=== PATIENT | male | born 1965 | race African-American/Black ===

== ENCOUNTER 2025-02-11 11:05 | Emergency (ER) | payer OTHER, SELFPAY ==
[2025-02-11 11:31] VITALS: BP 160/93; PULSE 74; RESP 18; TEMP 36.6; O2SAT 99
--- OUTSIDE RECORDS SUMMARY | 2025-02-11 12:15 | XMS_ITS | Clinical Summary ---
Author Organization [facility] Address [address] [place] [address] Care Team Providers Care Sheep Rancher Name Role Phone Raphael Sampson MD Unavailable [phone] Jorge GALLEGOS MD, Vasquez Lima Primary Care Provider Allergies No known active allergies Medications TADALAFIL 20 MG tabletIndication s:Erectile dysfunction, unspecified erectile dysfunction type Take 1 tablet (20 mg) by mouth daily as needed for erectile dysfunction. 30 tablet 2 2 Active methylPREDNISolo jagdish JERROD, (MEDROL) 4 MG tablet Take 1 tablet (4 mg total) by mouth daily. Follow package directions 1 each 3 Active lisinopril-hydro CHLOROthiazide (ZESTORETIC) 20-12.5 MG tablet Take 1 tablet by mouth daily. 30 tablet 3 Active Active Problems Problem Noted Date Diagnosed Date Mixed hyperlipidemia 09/11/2021 Primary hypertension 11/07/2018 Overweight (BMI 25.0-29.9) 11/07/2018 Resolved Problems Problem Noted Date Diagnosed Date Resolved Date Prostate cancer screening 09/11/2021 Chest pain 10/12/2018 01/29/2022 Family History Medical History Relation Comments Hypertension Brother Alcohol Abuse Father COPD Father Cancer Father Alcohol Abuse Mother Brain Aneurysm Mother Sickle Cell Trait Sister Relation Status Comments Brother Father Mother Sister Social History Tobacco Use Types Packs/Day Years Used Date Smoking Tobacco: Never Smokeless Tobacco: Never Tobacco Cessation:Counseling Given: No Alcohol Use Standard Drinks/Week Comments No 0 (1 standard drink = 0.6 oz pur e alcohol) PHQ-2 Answer Date Recorded PHQ-2 Score - If the patient scores above 3, please move on to questions 3-9 0 09/11/2021 Sex and Gender Information Value Date Recorded Sex Assigned at Not on file Legal Sex Male 5:43 PM CDT Gender Identity Not on file Sexual Orientation Not on file Last Filed Vital Signs Vital Sign Reading Time Taken Comments Blood Pressure 152/92 03/09/2023 1:41 PM CDT Pulse 68 03/09/2023 1:41 PM CDT Temperature 36.7 C (98 F) 03/09/2023 12:21 PM CDT Respiratory Rate 15 03/09/2023 1:41 PM CDT Oxygen Saturation 98% 03/09/2023 1:41 PM CDT Inhaled Oxygen Concentration - - Weight 100.6 kg (221 lb 12.5 oz) 2022 12:21 PM CDT Height 175.3 cm (5' 9) 03/09/2023 12:2 1 PM CDT Body Mass Index 32.75 03/09/2023 12:21 PM CDT Plan of Treatment Health Maintenance Due Date Last Done Comments Colorectal Cancer Screening Colonoscopy (10 Years) 1964 Annual Physical 12/29/1967 DTaP, Tdap and Td Vaccines ( 1 - Tdap) 12/29/1983 Pneumococcal Vaccine: 50+ Years (1 of 1 - PCV) 2014 Zoster Vaccines (1 of 2) 2014 COVID-19 Vaccine (3 - 2023-2 5 season) 2024 05/06/2021, 04/08/2021 RSV Immunization or 60+ Years (1 - 1-dose 75+ series) 12/29/2039 Hepatitis C 10/30/2051 Postponed from 1982 (Patient Refused) Meningococcal B Vaccine Aged Out No l onger eligible based on patient's age to complete this topic Meningococcal Vaccine Aged Out No violeta mohamud eligible based on patient's age to complete this topic RSV Immunizations Under 20 Months Aged Out No longer eligible b ased on patient's age to complete this topic Insurance [facility] Care Teams Sheep Rancher Relationship Specialty Start Date End Date Vasquez Patel II, MD [address] [place] [id number] PCP - General FAMILY PRACTICE 08/09/22 Raphael Sampson MD [facility]. [facility] [address] [place] [id number] Rabia Fine Grade Bulldozer Operator CARDIOVASCULAR DISEASE 08/31/19
--- OUTSIDE RECORDS SUMMARY | 2025-02-11 12:15 | XMS_ITS | Encounter Summary ---
Author Organization [facility] Address [address] [place] [address] Care Team Providers Care Consolidator Name Role Phone Raphael Sampson MD Unavailable [phone] Jorge GALLEGOS MD, Vasquez Lima Primary Care Provider Encounter Details Date Type Department Care Team (Late st Contact Info) Description 09/15/2022 [employer] Message Enc [facility] Family [facility] - [place] [address] [place] [address] [facility] Provider SCHEDULE APPOINMENT: ANNUAL PHYSICAL Social History Tobacco Use Types Packs/Day Years Used Date Smoking Tobacco: Never Smokeless Tobacco: Never Alcohol Use Standard Drinks/Week Comments No 0 [...] on file Sexual Orientation Not on file documented as of this encounter Functional Status * RETIRED Are you deaf or do you have serious difficulty hearing Answer Date of Assessment Author Status No 10/12/2018 11:31 AM CDT Acti ve * RETIRED Are you blind or do you have serious difficulty seeing, even when wearing glasses? Answer Date of Assessment Author Status No 10/12/2018 11:31 AM CDT Acti ve * Do you have serious difficulty walking or climbing stairs? Answer Date of Assessment Author Status No 10/12/2018 11:31 AM Humberto Gonzalez RN Active * Do you have difficulty dressing or bathing? Answer Date of Assessment Author Status No 10/12/2018 11:31 AM Humberto Gonzalez RN Active * Because of a physical, mental, or emotional condition, do you have difficulty doing errands alone such as visiting a doctor's office or shopping? Answer Date of Assessment Author Status No 10/12/2018 11:31 AM Humberto Gonzalez RN Active documented as of this encounter Mental Status * Because of a physical, mental, or emotional condition, do you have serious difficulty concentrating, remembering, or making decisions? 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 [address] [address] [place] Medical Assistant Prn CARDIOVASCULAR DISEASE 08/31/19 documented as of this encounter
--- NOTE | 2025-02-11 13:08 | ED_ITS ---
HPI - General Adult General Chief complaint: Back Pain/Injury Stated complaint: lower back pain radiates down RLE Time Seen by Provider: 02/11/25 11:57 History of Present Illness HPI narrative: 59-year-old male presents to the emergency department for evaluation for worsening lower back pain that radiates into his right leg. 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 Patient states the pain does radiate down to middle of the right thigh. Patient denies any change in bowel or bladder habits. Patient denies any numbness or tingling affecting the lower leg. Patient states he had no falls or specific injury. Pain did not bother him when he was crawling on the stage waited began to have more of a gradual onset over the preceding days. Patient reports he did take some ibuprofen for pain control last night but this did not help. Related Data Allergies Allergy/AdvReac Type Severity Reaction Status Date / Time No Known Allergies Allergy Verified 02/11/25 11:37 Review of Systems Review of Systems: All systems reviewed & are unremarkable except as noted in HPI and below Exam Narrative: APPEARANCE: Well appearing, no pain, no distress, well-nourished. HEAD: normocephalic, atraumatic. EYES: PERRLA/EOMI, conjunctivae clear. NOSE: Normal no drainage EARS:TMS clear with good light reflex. THROAT: Pharynx clear, no exudate. NECK: Supple. No adenopathy, no masses. RESPIRATORY: Airway patent, respirations nonlabored. Clear to auscultation bilaterally, no rales, rhonchi, wheezing. CARDIOVASCULAR: Regular rate and rhythm without murmurs rubs or gallops. ABDOMINAL: Soft, nontender, nondistended, normal bowel sounds MUSCULOSKELETAL: Right lower back tenderness to palpation with tenderness of the right buttock NEURO: Alert. Cranial nerves II through XII intact. Normal strength and reflexes of bilateral lower extremities SKIN: Warm, dry. Normal Color Course Vital Signs Vital signs: Vital Signs Temperature 97.9 F 02/11/25 11:31 Pulse Rate 74 02/11/25 11:31 Respiratory Rate 18 02/11/25 11:31 Blood Pressure 160/93 H 02/11/25 11:31 Pulse Oximetry 99 02/11/25 11:31 Oxygen Delivery Room Air 02/11/25 11:31 Temperature 97.9 F 02/11/25 11:31 Pulse Rate 74 02/11/25 11:31 Respiratory Rate 18 02/11/25 11:31 Blood Pressure 160/93 H 02/11/25 11:31 Pulse Oximetry 99 02/11/25 11:31 Oxygen Delivery Room Air 02/11/25 11:31 Medical Decision Making MDM Narrative Medical decision making narrative: 59-year-old male present to the emergency department for evaluation for lower back pain that is consistent with sciatica. Patient denies any specific falls or injuries. Low concern for skeletal injury. Patient was provided IM Toradol, p.o. New Enterprise and p.o. Flexeril emergency department. Patient family were updated on the physical exam and suspected diagnosis. Patient will be treated with Medrol Dosepak, Flexeril and New Enterprise for home. Patient was encouraged of close follow-up with his primary care physician for additional outpatient follow-up potential including physical therapy. Initially Medrol Dosepak was not ordered but I would did see this air and did place the Medrol Dosepak order and call to notify the patient. Differential Diagnosis Differential Diagnosis: Spine fracture, spine contusion, musculoskeletal strain, sciatica, cauda equina Vital Signs Vital Signs: Vital Signs Temperature 97.9 F 02/11/25 11:31 Pulse Rate 74 02/11/25 11:31 Respiratory Rate 18 02/11/25 11:31 Blood Pressure 160/93 H 02/11/25 11:31 Pulse Oximetry 99 02/11/25 11:31 Oxygen Delivery Room Air 02/11/25 11:31 Temperature 97.9 F 02/11/25 11:31 Pulse Rate 74 02/11/25 11:31 Respiratory Rate 18 02/11/25 11:31 Blood Pressure 160/93 H 02/11/25 11:31 Pulse Oximetry 99 02/11/25 11:31 Oxygen Delivery Room Air 02/11/25 11:31 Discharge Plan Discharge Clinical Impression: Sciatica Patient Disposition: Home Condition: Stable Instructions: Antibiotic Form, Sciatica (ED), Lower Back Exercises (ED) Additional Instructions: Medrol Dosepak as directed until completed. Flexeril for muscle spasm. Tylenol for pain control, replace Tylenol with New Enterprise for additional pain control. Do not take Tylenol and New Enterprise at the same time as both do contain acetaminophen. Have close follow-up with your primary care physician for further evaluation potential physical therapy. If you have any worsening symptoms please call or return to the emergency department. Patient Language: Kinyarwanda Prescriptions: New cyclobenzaprine 10 mg tablet 10 mg PO BID PRN (Reason: muscle spasm) Qty: 14 0RF hydrocodone-acetaminophen 5-325 mg tablet 1 tablet PO Q12H PRN (Reason: pain) Qty: 14 0RF methylprednisolone [Medrol (Chele)] 4 mg tablets,dose pack See Rx Instructions .ROUTE .COMPLEX Qty: 21 0RF Rx Instructions: for 6 days Follow-up/Referrals: PHYSICIAN,CHEMICAL TREATMENT PLANT TECHNICIAN [Primary Care Provider] - Stand Alone Forms: Work/School Release IP
[2025-02-11] MEDS: CYCLOBENZAPRINE HCL 10 MG TABLET PO (13:17)
[2025-02-11] MEDS: HYDROcodone/acetaminophen (*CRX) 7.5-325 MG TABLET 1 TAB PO (13:18)
[2025-02-11] MEDS: KETOROLAC 15 MG/ML VIAL (*BKC) 30 MG IM (13:18)
== END 2025-02-11 13:33 | disposition home or self-care (01) ==
PROVIDERS: Emergency Provider Emergency Medicine
DX: M54.41 Lumbago with sciatica, right side (principal)
CPT/HCPCS: 96372; 99283; A9270; J1885